=== PATIENT | male | born 1995 | race Caucasian/White ===

== ENCOUNTER 2016-12-03 23:13 | Emergency (ER) | payer MEDICAID ==
[~2016-12-03] VITALS: Ht 162.6 cm; Wt 86.5 kg
[2016-12-03 23:16] VITALS: Ht 162.6 cm; Wt 86.5 kg
[2016-12-04] MEDS ORDERED: DOXY100T20 PO (00:47)
--- NOTE | 2016-12-04 02:29 | ERD ---
ER Documentation Chief Complaint Date/Time DATE: 12/04/16 TIME: 02:27 Chief Complaint right big toe ingrown nail HPI This patient is a 21-year-old male presenting to the emergency department for ingrowing right big toenail ongoing intermittently for the past 6 months. He has pain exacerbated when walking. He also reports possible blood from the area. This is affecting the lateral side of the toe. He reports redness, but no fevers, chills, or other symptoms. ROS All systems reviewed and are negative except as per history of present illness. Medications Home Meds Active Scripts Doxycycline Hyclate* (Doxycycline Hyclate*) 100 Mg Tablet., 100 MG PO BID for 10 Days, #20 TAB Prov:BETTY MEREDITH PA-C 12/04/16 Allergies Allergies: Coded Allergies: No Known Allergy (Verified , 06/23/14) PMhx/Soc Medical and Surgical Hx: pt denies Medical Hx History of Surgery: Yes (APPY) Anesthesia Reaction: No Hx Neurological Disorder: No Hx Respiratory Disorders: No Hx Cardiac Disorders: No Hx Psychiatric Problems: No Hx Miscellaneous Medical Probl: No Hx Alcohol Use: No Hx Substance Use: No Hx Tobacco Use: No Smoking Status: Never smoker Physical Exam Vitals Vital Signs Date Time Temp Pulse Resp B/P Pulse Ox O2 Delivery O2 Flow Rate FiO2 12/03/16 23:16 97.5 98 20 136/79 100 Physical Exam Const: Nontoxic, well-appearing male in no acute distress. Head: Atraumatic Eyes: Normal Conjunctiva ENT: Normal External Ears, Nose and Mouth. Neck: Full range of motion..~ No meningismus. Abd: Soft, non tender, non distended. Normal bowel sounds Skin: No petechiae or rashes Back: There is an ingrowing nail with associated erythema and slight purulent discharge noted to the right great toenail affecting both the lateral and medial side. Ext: No cyanosis, or edema Neur: Awake and alert Psych: Normal Mood and Affect Procedures/MDM 21-year-old male presents for right great ingrown toenail. History and clinical examination is consistent with an infected right ingrowing great toenail. The patient is stable for outpatient management with a prescription for doxycycline. The patient understands the discharge plan and diagnosis and his questions and concerns were addressed. Removal of the nails not indicated at this time due to secondary infection. Strict ER return precautions were discussed. Close follow-up with primary care physician advised. Departure Diagnosis: Primary Impression: Ingrowing nail Condition: Fair Patient Instructions: Ingrown Toenail, Infected (Abx Only) Referrals: [facility] YOU HAVE RECEIVED A MEDICAL SCREENING EXAM AND THE RESULTS INDICATE THAT YOU DO NOT HAVE A CONDITION THAT REQUIRES URGENT TREATMENT IN THE EMERGENCY DEPARTMENT. FURTHER EVALUATION AND TREATMENT OF YOUR CONDITION CAN WAIT UNTIL YOU ARE SEEN IN YOUR DOCTORS OFFICE WITHIN THE NEXT 1-2 DAYS. IT IS YOUR RESPONSIBILITY TO MAKE AN APPOINTMENT FOR FOL-UP CARE. IF YOU HAVE A PRIMARY DOCTOR --you should call your primary doctor and schedule an appointment IF YOU DO NOT HAVE A PRIMARY DOCTOR YOU CAN CALL OUR PHYSICIAN REFERRAL HOTLINE AT IF YOU CAN NOT AFFORD TO SEE A PHYSICIAN YOU CAN CHOSE FROM THE FOLLOWING [facility] [address] [facility] [address] [facility] [facility] [address] [facility] [address] [facility] [address] [facility] [facility]. [address] [place] Additional Instructions: Follow up with your PCP within the next 1-3 days for a repeat evaluation and a possible referral to a specialist, if required. Return the the emergency department immediately if symptoms worsen or change. If you have any questions regarding medications, ask your pharmacist or us before you leave. If any adverse reactions, occur while taking your medications, discontinue the treatment and return to the emergency department immediately. If any new or worsening symptoms, uncontrolled fevers, or other unexplained symptoms occur, return to the emergency department immediately. Take your medications as directed, and complete the entire course of treatment. BETTY MEREDITH PA-C Dec 04, 2016 02:29
== END 2016-12-04 01:14 | disposition home or self-care (01) ==
LOC: FTE 23:13
DX: L60.0 Ingrowing nail (principal)
CPT/HCPCS: 99283